=== PATIENT | female | born 1970 | race Caucasian/White ===

== ENCOUNTER 2024-06-29 19:35 | Emergency (ER) | payer MEDICAID, OTHER ==
[~2024-06-29] VITALS: Ht 172.7 cm; Wt 70.8 kg
[2024-06-29 20:24] VITALS: BP 137/96; TEMP 98.7; O2SAT 98
[2024-06-29] MEDS ORDERED: AMOX-430 PO (20:31)
[2024-06-29] MEDS ORDERED: NAPR-1164 PO (20:31)
== END 2024-06-29 20:48 | disposition home or self-care (01) ==
LOC: ER 19:43
DX: K02.9 Dental caries, unspecified (principal); K08.89 Other specified disorders of teeth and supporting structures

== ENCOUNTER 2025-01-12 21:33 | Emergency (ER) | payer MEDICAID, OTHER ==
[~2025-01-12] VITALS: Ht 172.7 cm; Wt 70.3 kg
[~2025-01-12 21:33] MED LIST: AMOX-430 PO; NAPR-1164 PO
[2025-01-12] MEDS ORDERED: IBUPROFEN 600 MG TABLET ONE (22:39)
[2025-01-12] MEDS: IBUPROFEN 600 MG TABLET PO ONE (22:45)
[2025-01-12] MEDS ORDERED: IBUP-1490 PO (23:28)
[2025-01-12] MEDS ORDERED: HYDR-3972 PO (23:28)
[2025-01-13 00:06] VITALS: BP 134/89; TEMP 98; O2SAT 96
== END 2025-01-13 00:08 | disposition home or self-care (01) ==
LOC: ER 21:41
DX: S62.316A Displaced fracture of base of fifth metacarpal bone, right hand, initial encounter for closed fracture (principal); Z79.899 Other long term (current) drug therapy; W22.8XXA Striking against or struck by other objects, initial encounter; Y93.89 Activity, other specified; Y92.89 Other specified places as the place of occurrence of the external cause; Y99.8 Other external cause status
CPT/HCPCS: 73110; 73130-TC